=== PATIENT | female | born 1960 | race Caucasian/White ===

== ENCOUNTER → 2017-11-27 14:47 | Outpatient (CLI) | payer MEDICARE, MEDICAID, SELFPAY ==
--- NOTE | 2017-11-27 14:56 | XR_ITS ---
XR chest 2V Ordering Physician: Parish Burks MD Patient Age: 57 years: Female HISTORY: ITS.REASON: LT PLEURITIC PAIN TECHNIQUE: PA and lateral chest COMPARISON :Previous chest film from 2009 FINDINGS Lungs well expanded and clear with nothing definitely acute Heart is normal in size aorta is tortuous. Rosanne and mediastinal structures satisfactory. Severe scoliosis is seen at the upper lumbar spine and thoracolumbar region . Regarding pleuritic pain no pneumothorax. No pleural effusion. No chest wall lesion or rib lesion evident. The T-spine features appear similar to 2009 CXR. With only slight additional kyphosis at severe rotoscoliosis of lower T-spine IMPRESSION: ] Stable chest nothing definitely acute Lungs clear . Pronounced rotoscoliosis at the thoracolumbar spine with slight additional kyphosis here since 2009
== END ==
PROVIDERS: PCP Family Medicine; Visit Provider Family Medicine
DX: R07.89 Other chest pain (principal)
CPT/HCPCS: 71046

== ENCOUNTER → 2018-07-02 10:10 | Outpatient (POV) | payer MEDICARE, MEDICAID, SELFPAY | PROVIDERS: Visit Provider Physician Assistant | DX: Z00.00 Encounter for general adult medical examination without abnormal findings (principal) ==

== ENCOUNTER → 2018-07-09 10:08 | Outpatient (POV) | payer MEDICARE, MEDICAID, SELFPAY | PROVIDERS: Visit Provider Nurse Practitioner Acute Care | DX: Z00.00 Encounter for general adult medical examination without abnormal findings (principal) ==

== ENCOUNTER → 2018-10-02 11:04 | Outpatient (POV) | payer MEDICARE, MEDICAID, SELFPAY | PROVIDERS: Visit Provider Dermatology | DX: Z00.00 Encounter for general adult medical examination without abnormal findings (principal) ==

== ENCOUNTER → 2019-04-02 10:06 | Outpatient (POV) | payer MEDICARE, MEDICAID, SELFPAY | PROVIDERS: Visit Provider Dermatology | DX: Z00.00 Encounter for general adult medical examination without abnormal findings (principal) ==

== ENCOUNTER → 2019-08-22 13:31 | Outpatient (CLI) | payer MEDICARE, MEDICAID, SELFPAY ==
--- NOTE | 2019-08-22 13:40 | XR_ITS ---
PROCEDURE: XR FOOT WT BEARING RT 3V CLINICAL INDICATION: foot pain COMPARISON: FTL3 FOOT-LT-3 VIEWS from 01/31/2014 FINDINGS: No fracture or dislocation. No lytic or blastic change. There is normal mineralization. There are mild osteoarthritic changes at the navicular cuneiform joint with borderline pes planus Other findings:None. IMPRESSION: Minimal osteoarthritic change with borderline pes planus Dictated by: Owen Jha MD 08/22/2019 16:38 Electronically signed by Owen Jha MD in [place] 08/22/2019 16:38
--- NOTE | 2019-08-22 13:40 | XR_ITS ---
PROCEDURE: XR FOOT WT BEARING LT 3V CLINICAL INDICATION: foot pain COMPARISON: FTL3 FOOT-LT-3 VIEWS from 01/31/2014 FINDINGS: No fracture or dislocation. No lytic or blastic change. There is normal mineralization. The joint spaces are well-preserved. No significant degenerative/arthritic changes. No erosive changes evident. Other findings:There is deformity of the proximal phalanx of the 2nd toe with some foreshortening of the proximal phalanx. Has the patient had prior surgery?. There is borderline pes planus. No acute findings are evident. IMPRESSION: Borderline pes planus with foreshortening of the proximal phalanx of the 2nd toe Dictated by: Owen Jha MD 08/22/2019 16:41 Electronically signed by Owen Jha MD in [place] 08/22/2019 16:41
== END ==
PROVIDERS: PCP Family Medicine; Visit Provider Podiatrist
DX: M79.672 Pain in left foot (principal); M79.671 Pain in right foot
CPT/HCPCS: 73630

== ENCOUNTER → 2020-04-28 08:59 | Outpatient (POV) | payer MEDICARE, MEDICAID, SELFPAY | PROVIDERS: PCP Family Medicine; Visit Provider Physician Assistant | DX: Z00.00 Encounter for general adult medical examination without abnormal findings (principal) ==

== ENCOUNTER → 2021-05-17 15:08 | Outpatient (CLI) | payer MEDICARE, MEDICAID, SELFPAY ==
--- NOTE | 2021-05-17 15:16 | XR_ITS ---
PROCEDURE: XR CHEST 2V CLINICAL HISTORY: COUGH COMPARISON: CR CXR CHEST(2 VIEWS-NOT PORTABLE) from 12/13/2013 CR CXR CHEST(2 VIEWS-NOT PORTABLE) from 08/23/2015 CR CXR2V XR chest 2V from 11/27/2017 FINDINGS: The cardiomediastinal silhouette and pulmonary vascularity are within normal limits. The lungs are clear without infiltrates, suspicious nodules, or pleural effusions. There is thoracic scoliosis convex left and lumbar scoliosis convex right. There is kyphosis of the thoracolumbar spine IMPRESSION: No change with no acute finding. Dictated by: Owen Jha MD 05/17/2021 15:36 Owen Jha MD in [place] 05/17/2021 15:36
== END ==
PROVIDERS: PCP Family Medicine; Visit Provider Family Medicine
DX: R05 Cough (principal)
CPT/HCPCS: 71046

== ENCOUNTER → 2021-05-25 10:33 | Outpatient (POV) | payer MEDICARE, MEDICAID, SELFPAY | PROVIDERS: Visit Provider Dermatology | DX: Z00.00 Encounter for general adult medical examination without abnormal findings (principal) ==

== ENCOUNTER → 2021-09-08 11:17 | Outpatient (CLI) | payer MEDICARE, MEDICAID, SELFPAY ==
--- NOTE | 2021-09-08 11:28 | XR_ITS ---
PROCEDURE: XR CHEST PORTABLE CLINICAL HISTORY: COVID TESTING COMPARISON: CR CXR CHEST(2 VIEWS-NOT PORTABLE) from 08/23/2015 CR CXR2V XR chest 2V from 11/27/2017 CR XR CHEST 2V from 05/17/2021 FINDINGS: The cardiomediastinal silhouette and pulmonary vascularity are within normal limits considering a somewhat poor inspiration. The lungs are clear without infiltrates, suspicious nodules, or pleural effusions. No acute bony abnormalities. Dextroscoliotic curvature of the thoracolumbar junction. IMPRESSION: No acute findings. Dictated by: Dr. Phillip Del Cid MD 09/08/2021 12:17 Dr. Phillip Del Cid MD in [place] 09/08/2021 12:17
[2021-09-08 11:47] LABS: Adenovirus,PCR Not Detected (NotDetected); Bordetella Pertussis Not Detected (NotDetected); Chlamydophila Pneumoniae, PCR Not Detected (NotDetected); Coronavirus 19, PCR Not Detected (NotDetected); Coronavirus 229E Not Detected (NotDetected); Coronavirus NL63 Not Detected (NotDetected); Coronavirus OC43 Not Detected (NotDetected); Coronovirus HKU1,PCR Not Detected (NotDetected); Human Metapneumovirus Not Detected (NotDetected); Influenza A, PCR Not Detected (NotDetected); Influenza AH1, 2009 Not Detected (NotDetected); Influenza AH1, PCR Not Detected (NotDetected); Influenza AH3,PCR Not Detected (NotDetected); Influenza B, PCR Not Detected (NotDetected); Mycoplasma Pneumoniae, PCR Not Detected (NotDetected); Parainfluenza 1, PCR Not Detected (NotDetected); Parainfluenza 2, PCR Not Detected (NotDetected); Parainfluenza 3, PCR Not Detected (NotDetected); Parainfluenza 4, PCR Not Detected (NotDetected); Respiratory Syncytial Virus Not Detected (NotDetected)
[2021-09-08 11:59] LABS: Basophils # 0.1 K/mm3 (0-0.2); Basophils % 1.2 % (0.1-2.0); Eosinophils # 0.2 K/mm3 (0.0-0.4); Eosinophils % 3.6 % (0.1-12.0); Hematocrit 44.2 % (37.0-47.0); Lymphocytes # 1.7 K/mm3 (0.7-4.5); Lymphocytes % 26.3 % (10-50); Mean Corpuscular HGB Conc 31.7 g/dL (31.8-35.4); Mean Corpuscular Hemoglobin 29.1 pg (27.0-31.2); Mean Platelet Volume 7.7 fl (7.4-10.4); Monocytes # 0.6 K/mm3 (0.1-1.0); Neutrophils % 59.9 % (37.0-80.0); Platelet Count 192 K/mm3 (142-424); Red Blood Count 4.81 M/mm3 (4.20-5.40); Red Cell Distribution Width 12.6 % (11.5-17.5); White Blood Count 6.6 K/mm3 (4.8-10.8)
[2021-09-08 15:13] LABS: Rhinovirus/Enterovirus Detected (NotDetected)
== END ==
PROVIDERS: PCP Family Medicine; Visit Provider Nurse Practitioner Family
DX: Z20.822 Contact with and (suspected) exposure to COVID-19 (principal); B34.1 Enterovirus infection, unspecified
CPT/HCPCS: 36415; 71045; 85025; 87581; 87632; 87798; C9803; U0003; U0005

== ENCOUNTER → 2022-06-21 11:52 | Outpatient (CLI) | payer MEDICARE, MEDICAID, SELFPAY ==
--- NOTE | 2022-06-21 11:57 | XR_ITS ---
FINAL REPORT CLINICAL HISTORY: Pain in left shoulder FINDINGS: LEFT SHOULDER Three views demonstrate no acute fracture or dislocation. There are mild degenerative changes of the acromioclavicular and glenohumeral joints. The visualized bony structures are well aligned. No soft tissue abnormality is seen. IMPRESSION: Mild degenerative change as described. Reviewed, Interpreted and Dictated by Ronak Osman III, MD Transcribed by Penelope Mcdonald Authenticated and [facility]
== END ==
PROVIDERS: PCP Family Medicine; Visit Provider Family Medicine
DX: M25.512 Pain in left shoulder (principal)
CPT/HCPCS: 73030

== ENCOUNTER → 2022-06-21 15:07 | Outpatient (POV) | payer MEDICARE, MEDICAID, SELFPAY | PROVIDERS: Visit Provider Dermatology | DX: Z00.00 Encounter for general adult medical examination without abnormal findings (principal) ==

== ENCOUNTER → 2022-09-16 09:37 | Outpatient (CLI) | payer MEDICARE, MEDICAID, SELFPAY ==
[2022-09-16 10:27] LABS: Basophils # 0.1 K/mm3 (0-0.2); Basophils % 1.6 % (0.1-2.0); Eosinophils # 0.1 K/mm3 (0.0-0.4); Eosinophils % 1.9 % (0.1-12.0); Hematocrit 42.8 % (37.0-47.0); Hemoglobin 13.7 g/dL (12.2-16.2); Lymphocytes # 2.5 K/mm3 (0.7-4.5); Mean Corpuscular HGB Conc 32.1 g/dL (31.8-35.4); Mean Corpuscular Hemoglobin 29.8 pg (27.0-31.2); Mean Corpuscular Volume 92.8 fl (81-99); Mean Platelet Volume 8.8 fl (7.4-10.4); Monocytes # 0.5 K/mm3 (0.1-1.0); Monocytes % 7.4 % (1.7-9.3); Neutrophils % 55.1 % (37.0-80.0); Platelet Count 218 K/mm3 (142-424); Red Blood Count 4.61 M/mm3 (4.20-5.40); Red Cell Distribution Width 13.3 % (11.5-17.5); White Blood Count 7.2 K/mm3 (4.8-10.8)
[2022-09-16 10:47] LABS: Alanine Aminotransferase 24 U/L (12-78); Albumin Level 4.2 g/dl (3.5-5.0); Albumin/Globulin Ratio 1.8 (1.1-1.8); Alkaline Phosphatase 110 U/L (38-126); Anion Gap 11.6 mEq/L (5-15); Aspartate Amino Transferase 32 U/L (14-36); Bilirubin,Total 0.5 mg/dl (0.2-1.3); Blood Urea Nitrogen 13 mg/dl (7-17); Calcium 9.5 mg/dl (8.4-10.2); Carbon Dioxide 33 mmol/L (22.0-30.0); Chloride 99 mmol/L (98-107); Estimated Glomerular Filt Rate 72 ml/min (>60); GFR (African American) 88 ML/MIN (>60); Globulin 2.4 g/dL (1.3-3.2); Glucose 93 mg/dl (74-100); Potassium 3.6 mmoL/L (3.5-5.1); Sodium 140 mmol/L (136-145); Total Protein,Serum 6.6 g/dl (6.3-8.2)
[2022-09-16 11:52] LABS: Vitamin B12 934 pg/mL (239-931)
[2022-09-16 12:02] LABS: Folate > 20.00 ng/mL; Iron 74 ug/dL (37-170)
[2022-09-16 12:39] LABS: Ferritin 19.5 ng/ml (11.1-264)
== END ==
PROVIDERS: Family Medicine; PCP Family Medicine
DX: G25.81 Restless legs syndrome (principal); D50.8 Other iron deficiency anemias
CPT/HCPCS: 36415; 80053; 82607; 82728; 82746; 83540; 85025

== ENCOUNTER → 2022-10-28 09:29 | Outpatient (CLI) | payer MEDICARE, MEDICAID, SELFPAY ==
--- NOTE | 2022-10-28 09:34 | XR_ITS ---
FINAL REPORT TECHNIQUE: Bone densitometry calculations of the lumbar spine and right hip were obtained. CLINICAL HISTORY: . post menopausal FINDINGS: DEXA BONE DENSITY AXIAL SKELETON Using L1-4, the bone mineral density of the spine is 0.773 g/cm2, corresponding to T-score of -2.5. Using the right hip, the bone mineral density of the femoral neck is 0.566 g/cm2, corresponding to a T-score of -3.1. NOTE: T-score: Standard deviation compared with peak bone mass of young adult mean. *Following the recommendations of the International Society of Bone Densitometry, classification of hip BMD is based on the lower of two T-scores; total hip or femoral neck. IMPRESSION: Osteoporosis: Lowest T-score is at or below -2.5. This patient's T-score meets the World Health Organization criteria for osteoporosis. FRAX not reported because: some T-score for spine total or hip total or femoral neck at or below-2.5. Reviewed, Interpreted and Dictated by Ronak Osman III, MD Transcribed by Penelope Mcdonald Authenticated and [facility]
== END ==
PROVIDERS: PCP Family Medicine; Visit Provider Family Medicine
DX: Z78.0 Asymptomatic menopausal state (principal); M81.0 Age-related osteoporosis without current pathological fracture
CPT/HCPCS: 77080

== ENCOUNTER 2022-11-29 11:07 | Outpatient (CLI) | payer MEDICARE, MEDICAID, SELFPAY ==
[2022-11-29 11:30] VITALS: BP 137/54; PULSE 78; RESP 20; TEMP 36.3; O2SAT 100
== END 2022-11-29 11:50 | disposition home or self-care (01) ==
LOC: INF 11:08
PROVIDERS: PCP Family Medicine; Visit Provider Family Medicine
DX: M81.0 Age-related osteoporosis without current pathological fracture (principal)
CPT/HCPCS: 96372; J0897

== ENCOUNTER 2023-05-30 11:11 | Outpatient (CLI) | payer MEDICARE, MEDICAID, SELFPAY ==
[2023-05-30 11:26] VITALS: BP 117/64; PULSE 71; RESP 18; O2SAT 99
== END 2023-05-30 11:35 | disposition home or self-care (01) ==
LOC: INF 11:13
PROVIDERS: PCP Family Medicine; Visit Provider Family Medicine
DX: M81.0 Age-related osteoporosis without current pathological fracture (principal)
CPT/HCPCS: 96372; J0897

== ENCOUNTER → 2023-08-01 12:58 | Outpatient (POV) | payer MEDICARE, MEDICAID, SELFPAY | PROVIDERS: Visit Provider Dermatology | DX: Z00.00 Encounter for general adult medical examination without abnormal findings (principal) ==

== ENCOUNTER 2024-05-30 09:27 | Outpatient (CLI) | payer MEDICARE, MEDICAID, SELFPAY ==
--- NOTE | 2024-05-30 09:32 | XR_ITS ---
FINAL REPORT CLINICAL HISTORY: SCREENING, scoliosis FINDINGS: BONE MINERAL DENSITOMETRY, DEXA SCAN CLINICAL HISTORY: Osteoporosis screening. Comparison: None FINDINGS: Bone densitometry calculations of the lumbar spine and left femoral neck were obtained. Average BMD for the lumbar spine from L1-L4 is 0.763 g/sq cm. T-score is -2.6 Z-score is -0.8 Left femoral neck BMD is 0.515 g/sq cm. T-score is -3.0. Z score is -1.5 IMPRESSION: 1. Osteoporosis BMD of the lumbar spine.. Elevated risk for fracture. 2. Osteoporosis BMD of the left femoral neck. Elevated risk for fracture. Films reviewed , interpreted and dictated by Dr. Daija Heredia. Transcribed by Duglas Angeles PA-C. Reviewed, Interpreted and Dictated by Daija Heredia MD Transcribed by NEIL Brandt Authenticated and [facility]
== END 2024-05-30 23:59 | disposition home or self-care (01) ==
LOC: RAD 09:28
PROVIDERS: PCP Family Medicine; Visit Provider Family Medicine
DX: M81.0 Age-related osteoporosis without current pathological fracture (principal)
CPT/HCPCS: 77080

== ENCOUNTER 2024-11-21 10:00 | Day surgery (SDC) | payer MEDICARE, MEDICAID, SELFPAY ==
[2024-11-21 10:21] VITALS: BP 130/80; PULSE 84; RESP 18; TEMP 36.6; O2SAT 96
[2024-11-21] MEDS: LACTATED RINGERS 1000ML 1,000 ML 25 ML IV (10:33)
--- NOTE | 2024-11-21 10:37 | P.PNANES_ITS ---
[facility] Disclaimer: The information contained in this section may have been updated after the patient was seen, as this information can be updated by other users. Medical History History of skin cancer Arthritis Migraines GERD (gastroesophageal reflux disease) Restless leg syndrome Osteoporosis Asthma Vaginal atrophy Surgical History History of cancer surgery H/O arthroscopy of right knee History of carpal tunnel release History of colonoscopy History of esophagogastroduodenoscopy (EGD) History of hammertoe correction History of phacoemulsification of cataract of both eyes with intraocular lens implantation History of cholecystectomy Family History Mother Cancer ovarian Other Asthma Hyperlipidemia Hypertension Social History (Updated 11/21/24 @ 10:23 by Davida Baeza RN) Smoking Status: Never smoker alcohol intake: never substance use type: denies use current occupational status: disabled Travel in the last 8 weeks: None caffeine: Yes [facility] Anesthesia Checklist Patient Identification Patient Identification: Arm Band and Verbal (Name & ) Structural Data Admitted From: Home Planned Operative Procedure/s: EGD/Colonoscopy Consent for Planned Operative Procedure(s) Verified: Yes Verified Documents: Surgical Consent and History and Physical NPO Status Verified Time NPO: 07:00 Additional verifications Patient : No Anesthesia Reactions: Yes (PONV w/GA) Cardiovascular Assessment Heart Sounds: S1 & S2 Pulse Rhythm: Irregular Peripheral Edema: No Airway Assessment Mallampati Score:: Class II C-Spine Mobility Assessed: Yes (FROM) TMJ Mobility Assessed: Yes Dentition: Good Dentition (Nothing loose per pt.) Neurological Assessment Level of Consciousness: Awake, Alert, Appropriate and Follows Commands Hx Seizures: No Numbness or tingling in extremities: No Anesthesia Plan Anesthesia Plan: Verified ASA Class: III Anesthesia Type: MAC
[2024-11-21 10:44] VITALS: O2SAT 100
--- NOTE | 2024-11-21 10:47 | EXP.HP ---
History of Present Illness *Admission Date: 11/21/24 *Reason for visit:: Intractable heartburn/reflux with some dysphagia and surveillance colonosco *History of present illness: Mrs. James is a 63-year-old female who is here for diagnostic upper endoscopy secondary to intractable heartburn/GERD and screening/surveillance colonoscopy (10 years since last). The examination is deemed medically necessary for diagnostic upper endoscopy and surveillance colonoscopy. The patient has been seen, interviewed and examined prior to the procedure by both myself and the anesthesia provider. [facility] Disclaimer: The information contained in this section may have been updated after the patient was seen, as this information can be updated by other users. Medical History (Updated 11/21/24 @ 10:49 by Chas Beard II, MD) History of skin cancer Arthritis Migraines GERD (gastroesophageal reflux disease) Restless leg syndrome Osteoporosis Asthma Vaginal atrophy Surgical History History of cancer surgery H/O arthroscopy of right knee History of carpal tunnel release History of colonoscopy History of esophagogastroduodenoscopy (EGD) History of hammertoe correction History of phacoemulsification of cataract of both eyes with intraocular lens implantation History of cholecystectomy Family History Mother Cancer ovarian Other Asthma Hyperlipidemia Hypertension Social History (Updated 11/21/24 @ 10:38 by Carey Ahuja CRNA) Smoking Status: Never smoker alcohol intake: never substance use type: denies use current occupational status: disabled Travel in the last 8 weeks: None caffeine: Yes Have you lived/traveled outside [place] in past 30 days?: No Contact w/someone who lives/traveled outside US past 30 days?: No Exposure to someone with infectious disease in past 14 days?: No Do you have a fever (greater than 100.4 F or 38 C)?: No Have you tested positive for COVID-19: No Exposed to someone with COVID-19 in past 14 days?: No Do you have a sore throat?: No Do you have a cough?: No Do you have any weakness?: No Are you experiencing any nausea/vomitting?: No Do you have any diarrhea?: No Are you experiencing any unusual bleeding?: No Do you have any muscle aches/pain?: No Do you have any abdominal pain?: No Are you experiencing loss of taste or smell?: No Other Medical History Have you received the Pneumonia Vaccine: No Review of Systems Review of Systems Review of systems (narrative): Negative *Cardiovascular Comments: Negative *Gastrointestinal Comments: Negative *Genitourinary Comments: Negative *Musculoskeletal Comments: Negative *Neurologic Comments: Negative Meds Home Medications and Allergies Home Medications ?Medication ?Instructions ?Recorded ?Confirmed ?Type albuterol sulfate 90 mcg/actuation 1 inh inhalation NEEDED PRN 08/22/19 11/21/24 History aerosol inhaler breathing #18 grams fluticasone propionate 220 1 inh inhalation DAILY allergies 08/22/19 11/21/24 History mcg/actuation HFA aerosol inhaler #12 grams hydroxyzine pamoate 25 mg capsule 25 mg PO NEEDED PRN Anxiety #30 08/22/19 11/21/24 History caps sumatriptan succinate 100 mg tablet 100 mg PO NEEDED PRN migraines 08/22/19 11/21/24 History #9 tabs omeprazole 20 mg capsule,delayed 20 mg PO DAILY GERD 06/27/22 11/21/24 History release ropinirole 0.25 mg tablet 0.25 mg PO HS 12/26/22 11/21/24 History tizanidine 4 mg capsule 4 mg PO BID PRN . 07/11/23 11/21/24 History oxcarbazepine 150 mg tablet 150 mg PO DAILY 09/30/24 11/21/24 History sodium,potassium,mag sulfates 17.5 See Rx Instructions PO .COMPLEX 11/08/24 11/21/24 Rx gram-3.13 gram-1.6 gram oral soln #354 mL (Suprep Bowel Prep Kit) New Prescriptions to Start Prescriptions: Allergies Allergy/AdvReac Type Severity Reaction Status Date / Time clavulanic acid (CLAVULANIC Allergy Mild UNKNOWN Verified 11/21/24 10:26 ACID) erythromycin base Allergy Mild UNKNOWN Verified 11/21/24 10:26 (ERYTHROMYCIN BASE) gabapentin (GABAPENTIN) Allergy Mild UNKNOWN Verified 11/21/24 10:26 guaifenesin (GUAIFENESIN) Allergy Mild BLEEDING Verified 11/21/24 10:26 risedronate sodium (From Allergy Mild UNKNOWN Verified 11/21/24 10:26 ATELVIA) sulindac (SULINDAC) Allergy Mild UNKNOWN Verified 11/21/24 10:26 topiramate (TOPIRAMATE) Allergy Mild UNKNOWN Verified 11/21/24 10:26 alendronate sodium (From Allergy Unknown Other Verified 11/21/24 10:26 FOSAMAX) amoxicillin (AMOXICILLIN) Allergy Unknown Other Verified 11/21/24 10:26 beclomethasone (From Allergy Unknown Other Verified 11/21/24 10:26 BECONASE AQ) cefaclor (CEFACLOR) Allergy Unknown Other Verified 11/21/24 10:26 celecoxib (CELECOXIB) Allergy Unknown Other Verified 11/21/24 10:26 ciprofloxacin (From CIPRO) Allergy Unknown Other Verified 11/21/24 10:26 clarithromycin (From BIAXIN) Allergy Unknown Other Verified 11/21/24 10:26 cyclobenzaprine Allergy Unknown Other Verified 11/21/24 10:26 (CYCLOBENZAPRINE) estradiol (From ESTRACE) Allergy Unknown Other Verified 11/21/24 10:26 piroxicam (From FELDENE) Allergy Unknown Other Verified 11/21/24 10:26 pregabalin (From LYRICA) Allergy Unknown CONFUSION Verified 11/21/24 10:26 diphenoxylate (From Lomotil) AdvReac Mild headache Verified 11/21/24 10:26 acetaminophen (From Endocet) AdvReac Other Verified 11/21/24 10:26 azithromycin AdvReac Other Verified 11/21/24 10:26 carbamazepine AdvReac Other Verified 11/21/24 10:26 doxycycline AdvReac Other Verified 11/21/24 10:26 fluticasone (From Advair AdvReac Other Verified 11/21/24 10:26 Diskus) indomethacin AdvReac Other Verified 11/21/24 10:26 methylprednisolone AdvReac Other Verified 11/21/24 10:26 montelukast AdvReac Other Verified 11/21/24 10:26 oxaprozin (From Daypro) AdvReac UPSET Verified 11/21/24 10:26 STOMACH oxycodone (From Endocet) AdvReac Other Verified 11/21/24 10:26 phenylephrine (From Entex [place]) AdvReac BLEEDING Verified 11/21/24 10:26 phenylpropanolamine (From AdvReac BLEEDING Verified 11/21/24 10:26 Entex [place]) ropinirole (From Requip) AdvReac Other Verified 11/21/24 10:26 salsalate AdvReac Other Verified 11/21/24 10:26 tiotropium (From Spiriva AdvReac Other Verified 11/21/24 10:26 with HandiHaler) Exam Data for Last 24 hours Vital signs and Labs for Last 24 Hours: Temp Pulse Resp BP Pulse Ox O2 Del Method O2 Flow Rate 97.9 F 84 18 130/80 96 Nasal Cannula 5 11/21/24 10:21 11/21/24 10:21 11/21/24 10:21 11/21/24 10:21 11/21/24 10:21 11/21/24 10:44 11/21/24 10:44 I & O for Last 24 hours: Intake & Output 11/18/24 11/19/24 11/20/24 11/21/24 23:59 23:59 23:59 23:59 Weight 134 lb *Routine HEENT Exam Head: Present normocephalic Eye: Present EOMI and PERRL ENT: Present mucous membranes moist *Routine Neck Exam Neck: Present supple *Routine Respiratory Exam Respiratory: Present CTA bilaterally *Routine Cardiovascular Exam Cardiovascular: Present RRR *Routine Abdominal Exam Abdominal: Present soft and normoactive bowel sounds; Absent tenderness *Routine Rectal Exam Rectal:: deferred *Routine Genitalia Exam Genitalia:: deferred *Routine Extremities Exam Extremities: Absent cyanosis, clubbing or edema *Routine Skin Exam Skin: Present warm; Absent rash *Routine Neurological Exam Neurological: Present alert and oriented X3 Assessment and Plan *Assessment and plan (1) Functional dyspepsia: Status: Acute Category: Medical Code(s): K30 - Functional dyspepsia (2) Chronic throat clearing: Status: Acute Category: Medical Code(s): R09.89 - Other specified symptoms and signs involving the circulatory and respiratory systems (3) Coughing: Status: Acute Category: Medical Code(s): R05.9 - Cough, unspecified (4) Bloating: Status: Acute Category: Medical Code(s): R14.0 - Abdominal distension (gaseous) (5) GERD (gastroesophageal reflux disease): Status: Acute Category: Medical Code(s): K21.9 - Gastro-esophageal reflux disease without esophagitis (6) Screening for colon cancer: Status: Acute Category: Medical Code(s): Z12.11 - Encounter for screening for malignant neoplasm of colon Plan A/P: 1. Intractable GERD/reflux and dyspepsia for upper endoscopy and screening/surveillance colonoscopy is the preprocedural diagnosis. The patient will be anesthetized/sedated using MAC sedation. The patient has been seen and examined. Cardiac and lung assessment prior to the examination is stable. Proceed with planned EGD and colonoscopy
--- NOTE | 2024-11-21 10:49 | P.PCN_ITS ---
[facility] Procedure Note Date: 11/21/24 Time: 11:07 Procedure Note:: Upper Endoscopy Procedure Report: Esophagogastroduodenoscopy with cold biopsies and TTS balloon dilation Endoscopost: Chas Beard II, MD Referring Physician: Rivas Burks MD Date of Procedure: November 21, 2024 Equipment: Olympus GIF 190 standard upper endoscope Sedation: MAC sedation Indications: Mrs. James is a 63-year-old female with longstanding reflux and functional dyspepsia. She also has IBS. The patient does have numerous drug intolerances and allergies. She did have an intolerance to metoclopramide. She has had recurrent coughing, frequent clearance of the throat and worsening reflux that will awaken her from sleep. She does take omeprazole 20 mg daily and occasionally twice daily. She is on the fiber bowel regimen (combined MiraLAX plus Metamucil) daily and reports regular bowel function. She has moderate bloating, early satiety and some nausea. She often feels the need to belch and has to force herself to belch. She has had some globus and intermittent swallowing difficulty. Her last EGD was in January 2015 showing a medium sized hiatal hernia. Procedure: Prior to the procedure, a history and physical exam was performed, and patient's medications and allergies were reviewed. The risks, benefits and alternatives of the sedation and procedure were discussed with the patient. All questions were answered and informed consent was obtained. The patient was brought to the procedure room. Patient identification and proposed procedure were verified by the physician and the nurse. The patient was placed in a left lateral decubitus position and the scope was passed under direct vision. Throughout the procedure, the patient's blood pressure, pulse, and oxygen saturations were monitored continuously. The upper GI endoscopy was accomplished without difficulty. The patient tolerated the procedure well. Findings: The scope was passed directly into the upper esophagus and advanced to the third portion of the duodenum. The post bulbar duodenum and duodenal bulb were normal with normal mucosa and conniventes. The scope was withdrawn through a normal duodenal bulb and pylorus into the stomach. There was moderate bile reflux with moderate linear reactive gastropathy of the antrum and body. Upon retroflexion there was a large 8 to 9 cm hiatal hernia with paraesophageal component. The diaphragmatic hiatus was at 40 cm from the incisors. The top of the gastric folds was at 31 to 32 cm from the incisors leaving the 8 to 9 cm hiatal hernia. There were no Arnaldo's erosions. The scope was then withdrawn into the esophagus. There was grade A?B reflux esophagitis and biopsies were taken at the squamocolumnar junction. There were tertiary contractions and evidence of presbyesophagus and moderate esophageal dysmotility. The entire esophagus was dilated to 60 Sinhala/20 mm with a TTS hydrostatic balloon with some thickening and mild resistance at the cricopharyngeus. The remainder of the esophageal mucosa was normal. Impression: 1. Cricopharyngeal spasm status post dilation to 20 mm 2. Large paraesophageal type hiatal hernia (8 to 9 cm) 3. Grade A?B (LA classification) reflux esophagitis 4. Bile reflux with linear reactive gastropathy Plan: Based upon the size and nature of the paraesophageal hernia and her ongoing symptoms, we must consider hiatal hernia repair. A paraesophageal hernia refers to larger portions of the stomach that are pushed up into the chest. Surgical management is more important with this type of hiatal hernia. Sometimes, there is torsion of the stomach (i.e. gastric volvulus) with resulting stomach obstruction which can lead to a medical emergency. Occasionally, this volvulus can cause strangulation of the vessels. The patient has never clearly had a gastric volvulus and not all paraesophageal hernias need to be repaired but we recommend surgical repair when persons have ongoing dyspeptic symptoms because of the potential for increased risk. I am going to discuss this with the patient and family. I will follow-up biopsies and continue acid suppressive therapy. I would consider
--- NOTE | 2024-11-21 11:21 | HMH.PROCNOTE ---
[facility] Procedure Note Date: 11/21/24 Time: 11:22 Procedure Note:: Colonoscopy Procedure Report: Colonoscopy with cold snare polypectomy Endoscopist: Chas Beard II, MD Referring physician: Rivas Burks MD Date of Procedure: November 21, 2024 Equipment: Olympus 190 variable stiffness pediatric colonoscope Sedation: MAC sedation Indication: Mrs. James is a 63-year-old female who is here for surveillance colonoscopy. Her last colonoscopy in January 2015 was normal except for a benign small rectosigmoid hyperplastic polyp and she was given 10-year surveillance. She does have a long history of IBS. She reports no rectal bleeding, weight loss, change in her bowel habits or family history of colon cancer. Procedure: Prior to the procedure, a history and physical exam was performed, and patient's medications and allergies were reviewed. The risks, benefits and alternatives of the sedation and procedure were discussed with the patient. All questions were answered and informed consent was obtained. The patient was brought to the procedure room. Patient identification and proposed procedure were verified by the physician and the nurse. The patient was placed in a left lateral decubitus position and the scope was passed under direct vision. Throughout the procedure, the patient's blood pressure, pulse, and oxygen saturations were monitored continuously. The colonoscopy was accomplished without difficulty. The patient tolerated the procedure well. Findings: On digital rectal examination there was normal rectal tone. There were no external hemorrhoids. The colonoscope was introduced through the anal canal to the rectum and advanced to the cecum. The ileocecal valve and appendiceal orifice were identified. The scope was advanced a short distance into the ileum which appeared grossly normal. The scope was then withdrawn into the colon. The cecum, ascending, transverse and descending colon were grossly normal. There was a single 6 mm polyp in the sigmoid colon removed via cold snare polypectomy. The rectum itself was normal. There were no other mucosal abnormalities identified. Upon retroflexion within the rectum there were grade 1-2 internal hemorrhoids.The preparation was excellent throughout with Tullos Preparation Score of 9. The cecal time was 10 minutes. Impression: 1. Sigmoid polyp (6 mm) 2. Grade 1-2 internal hemorrhoids Plan: I will follow-up the polyp histology and recommend repeat surveillance colonoscopy again in 7 years if the polyp is adenomatous. I would continue the fiber bowel regimen (combined MiraLAX plus Metamucil) on a long-term daily maintenance basis.
[2024-11-21 11:25] VITALS: BP 101/53; PULSE 76; RESP 16; TEMP 36.3; O2SAT 97
[2024-11-21 11:35] VITALS: BP 135/83; PULSE 75; RESP 16; O2SAT 98
[2024-11-21 11:45] VITALS: BP 120/89; PULSE 67; RESP 17; O2SAT 95
[2024-11-21 11:55] VITALS: BP 108/68; PULSE 72; RESP 17; O2SAT 98
== END 2024-11-21 12:29 | disposition home or self-care (01) ==
PROVIDERS: PCP Family Medicine; Visit Provider Internal Medicine Gastroenterology
PROC: 0DJ08ZZ Inspection of Upper Intestinal Tract, Via Natural or Artificial Opening Endoscopic (ICD-10-PCS; CPT 45378; principal; 2024-11-21 11:30)
DX: K30 Functional dyspepsia (principal); R09.89 Other specified symptoms and signs involving the circulatory and respiratory systems; R05.9 Cough, unspecified; R14.0 Abdominal distension (gaseous); K21.9 Gastro-esophageal reflux disease without esophagitis; Z12.11 Encounter for screening for malignant neoplasm of colon; J39.2 Other diseases of pharynx; K44.9 Diaphragmatic hernia without obstruction or gangrene; K21.00 Gastro-esophageal reflux disease with esophagitis, without bleeding; K31.9 Disease of stomach and duodenum, unspecified; K63.5 Polyp of colon; K64.8 Other hemorrhoids
CPT/HCPCS: 43239; 43249; 45385; C1726; J7120

== ENCOUNTER 2024-11-28 11:58 | Outpatient (CLI) | payer MEDICARE, MEDICAID, SELFPAY ==
[2024-11-28 13:34] VITALS: BMI 31.7
== END 2024-11-28 23:59 | disposition home or self-care (01) ==
LOC: DIETICIAN 12:00
PROVIDERS: PCP Family Medicine; Visit Provider Internal Medicine Gastroenterology
DX: K30 Functional dyspepsia (principal); K21.9 Gastro-esophageal reflux disease without esophagitis
CPT/HCPCS: 97802

== ENCOUNTER 2024-12-30 08:42 | Outpatient (CLI) | payer MEDICARE, MEDICAID, SELFPAY ==
[2024-12-30 09:01] LABS: Basophils # 0.1 K/mm3 (0-0.2); Basophils % 1.2 % (0.1-2.0); Eosinophils # 0.2 K/mm3 (0.0-0.4); Eosinophils % 2.7 % (0.1-12.0); Hematocrit 39.6 % (37.0-47.0); Hemoglobin 13.3 g/dL (12.2-16.2); Lymphocytes # 2.2 K/mm3 (0.7-4.5); Lymphocytes % 32.3 % (10-50); Mean Corpuscular HGB Conc 33.6 g/dL (31.8-35.4); Mean Corpuscular Volume 86.3 fl (81-99); Mean Platelet Volume 9.6 fl (7.4-10.4); Monocytes # 0.7 K/mm3 (0.1-1.0); Monocytes % 9.7 % (1.7-9.3); Neutrophils # 3.6 K/mm3 (1.8-7.8); Platelet Count 242 K/mm3 (142-424); Red Blood Count 4.59 M/mm3 (4.20-5.40); Red Cell Distribution Width 12.9 % (11.5-17.5); White Blood Count 6.7 K/mm3 (4.8-10.8)
--- NOTE | 2024-12-30 09:11 | ECG_ITS ---
APPROVED REPORT Exam: Resting ECG HR:68 bpm ECG Measurements Heart Rate 68 AXES WV 164 P 26 QRSd 89 QRS -4 QT 401 T 3 QTc 419 Conclusion SINUS RHYTHM POSSIBLE LEFT ATRIAL ENLARGEMENT [-0.1mV P-WAVE IN V1/V2] BORDERLINE ECG UNCONFIRMED REPORT Electronically signed by : Farhad Carrington MD 12/31/2024 16:23:56
[2024-12-30 09:27] LABS: Albumin Level 4.1 g/dl (3.5-5.0); Chloride 96 mmol/L (98-107); Potassium 4.1 mmoL/L (3.5-5.1); Sodium 132 mmol/L (136-145)
[2024-12-30 09:30] LABS: Alanine Aminotransferase 34 U/L (12-78); Albumin/Globulin Ratio 1.6 (1.1-1.8); Alkaline Phosphatase 113 U/L (38-126); Anion Gap 9.1 mEq/L (5-15); Aspartate Amino Transferase 35 U/L (14-36); Bilirubin,Total 0.4 mg/dl (0.2-1.3); Blood Urea Nitrogen 15 mg/dl (7-17); Carbon Dioxide 31 mmol/L (22.0-30.0); Estimated Glomerular Filt Rate 84 ml/min (>60); GFR (African American) 101 ML/MIN (>60); Globulin 2.6 g/dL (1.3-3.2); Total Protein,Serum 6.7 g/dl (6.3-8.2)
[2024-12-30 09:31] LABS: Calcium 8.9 mg/dl (8.4-10.2); Glucose 90 mg/dl (74-100)
== END 2024-12-30 23:59 | disposition home or self-care (01) ==
LOC: RT 08:45
PROVIDERS: PCP Family Medicine; Visit Provider Family Medicine
DX: Z01.818 Encounter for other preprocedural examination (principal)
CPT/HCPCS: 36415; 80053; 85025; 93005

== ENCOUNTER 2025-06-06 09:00 | Outpatient (RCR) | payer MEDICARE, MEDICAID, SELFPAY ==
--- NOTE | 2025-05-14 11:59 | HMH.PTOPEV ---
PT Outpatient Evaluation Rehab PT Outpatient Evaluation Start: 05/14/25 11:07 Freq: Status: Active Protocol: Document 05/14/25 11:07 KEELEY (Rec: 05/14/25 11:59 ENRRIQUEMCKINLEYCARIDAD [id number]) E-signed By Baljit Saunders, PT Outpatient Therapy Subjective History Subjective History The pt is a 64 yof who is referred to [facility] outpatient PT for cervical neck pain and R knee pain. The pt reports that she has dealt with her knee pain for several years, but she reports that it has progressively worsened. Pt reports that her knee will often feel like it is going to give out. Pt denies any falls but reports that she feels like she has been close on several occasions. Pt reports that her knee also feels stiff in the mornings. She reports that she uses a cane whenever she is outside the home and will sometimes use it when she is in the home if she is in a lot of pain. Pt reports that her neck pain seemed to worsen this winter. Pt reports that the pain is on the R side of her neck and will often refer into her shoulder blades. Pt also reports that she will often get headaches from the neck pain. Pt reports that her pain is worsened with cold weather and whenever she has to do any sort of house work with her arms. PMH: History of skin cancer Arthritis Migraines GERD (gastroesophageal reflux disease) Restless leg syndrome Osteoporosis Asthma Vaginal atrophy New diagnosis of No cancer in past 12 months? Chief Complaint Pain,Stiff,Gives out/Unstable Symptom Type Ache,Sharp Symptoms Relieved By Heat Symptoms Aggravated Standing,Twisting,Walking By Prior Functional None Limitations Current Functional Lifting,Housework,Standing,Squatting,Walking,Stairs, Limitations Balance Symptom Description Constant but Variable,Activity Dependent Level of pain today 4 (0-10) Pain scale - at its 2 best (0-10) Pain scale - at its 10 worst (0-10) Cervical Eval Palpation Cervical Muscles R Cervical Paraspinal,R CT Junction,R Upper Trapezius,R Thoracic Paraspinals Cervical/Thoracic Tenderness Palpation Findings Posture Head/C-Spine Posture Flexed Sitting Position Head/C-Spine Posture Flexed Standing Position Flexibility Deficits Upper Trapezius (R) Severe Tightness,(L) Severe Tightness Muscle Length Pectoralis Major (R) Moderate Tightness,(L) Moderate Tightness Muscle Length Pectoralis Minor (R) Moderate Tightness,(L) Moderate Tightness Muscle Length Passive Joint Mobility Cervical PIVM Dec: L C4/5 R C5/6 L C5/6 R C6/7 L C6/7 R C7/T1 L C7/T1 AROM Cervical Spine 50% Extension Active Range of Motion ( degrees) Cervical Spine 75% Flexion Active Range of Motion (degrees) Cervical Spine Right 25% Lateral Flexion Active Range of Motion (degrees) Cervical Spine Left 15% Lateral Flexion Active Range of Motion (degrees) Cervical Spine Right 20% Rotation Active Range of Motion ( degrees) Cervical Spine Left 20% Rotation Active Range of Motion ( degrees) Hip/Knee Eval Gait Observation General Gait Pattern Antalgic Gait,Decrease Weight Bear (R),Decrease Stride Observation Lngth (L) Assistive Device Assistive Devices Straight Cane Palpation Tenderness right Knee Palpation Tenderness Finding Knee Palpation TTP 3/4 to R Knee medial and lateral femoral condyle Overall Comment MMT Hip Flexion Strength 3+ Fair+ Grade Hip Abduction 3 Fair Strength Grade Hip Adduction 3 Fair Strength Grade Hip Extension 3 Fair Strength Grade Knee Extension 3+ Fair+ Strength Grade Knee Flexion 3+ Fair+ Strength Grade ROM Knee ROM Reason Not Within Functional Limits Measured Neck Disability Index Neck Disability Index Section 1: Pain The pain is fairly severe at the moment Intensity Section 2: Personal I can look after myself normally but it causes extra Care (washing, pain dressing, etc.) Section 3: Lifting I can lift heavy weights but it gives extra pain Section 4: Reading I can read as much as I want to with no pain in my neck Section 5: Headaches I have moderate headaches, which come infrequently Section 6: I can concentrate fully when I want to with no Concentration difficulty Section 7: Work I can do as much work as I want to Section 8: Driving I can drive my car as long as I want with slight pain in my neck Section 9: Sleeping My sleep is slightly disturbed (less than 1 hr sleepless) Section 10: I am able to engage in all my recreation activities Recreation with some pain in NDI Score 10 Lower Extremity Functional Index Activities Today, do you or would you have any difficulty at all with: a.Any of your usual A little bit of difficulty work, housework or school activities b. Your usual A little bit of difficulty hobbies, recreational or sporting activities c. Getting into or Moderate difficulty out of the bath d. Walking between Moderate difficulty rooms e. Putting on your Quite a bit of difficulty shoes or socks f. Squatting Quite a bit of difficulty g. Lifting an object No difficulty , like a bag of groceries from the floor h. Performing light Moderate difficulty activities around your home i. Performing heavy A little bit of difficulty activities around your home j. Getting into or Quite a bit of difficulty out of a car k. Walking 2 blocks Extreme difficulty or unable to perform activity l. Walking a mile Quite a bit of difficulty m. Going up or down Moderate difficulty 10 stairs (about 1 flight of stairs) n. Standing for 1 A little bit of difficulty hour o. Sitting for 1 Moderate difficulty hour p. Running on even Quite a bit of difficulty ground q. Running on uneven Quite a bit of difficulty ground r. Making sharp Extreme difficulty or unable to perform activity turns while running fast s. Hopping A little bit of difficulty t. Rolling over in A little bit of difficulty bed LEFI Score Lower Extremity 38 Functional Index Score Miscellaneous Dx PT Eval Objective Objective Tandem Stance: unable to initiate b/l Outpatient Therapy Assessment Impairments Problems/ Palpation Tenderness,Impaired Range of Motion,Impaired Impairmments Strength,Impaired Gait Pattern,Impaired Walking, Impaired Standing,Impaired Household Care,Impaired Stair Climbing,Impaired Squatting,Impaired Balance, Subjective C/O Pain Prognosis Rehab Potential Fair Clinical Impression Consistent with Yes Diagnosis Additional details: Knee OA M17.11 Neck pain with mob. Deficits M54.2 Short Term Goals Number of Weeks 4 Decreased Palpation Yes: 2/4 to TTP assessment above Tenderness Increase Range of Yes: Improve CROM to 40% WNL Motion Increase Strength Yes: R knee/hip to 3+/5 Increase Ability to Yes: 20 minutes without increasing symptoms Stand Improve Balance Yes: TS on even surface without increasing symptoms Improve Neck Yes: <7 Disability Index Score Improve LEFI Score Yes: >48 Decrease Subjective Yes: 5/10 with above assessment C/O Pain Patient to be Ind w/ Yes HEP [facility] Goals Number of Weeks 8 Decreased Palpation Yes: 0-1/4 to TTP assessment above Tenderness Increase Range of Yes: improve CROM to 60% WNL Motion Increase Strength Yes: 4/5 to r hip/knee Improve Gait Pattern Yes: Symmetrical Gait mechanics with AAD. with Assistive Device Increase Ability to Yes: 40 minutes without increasing symptoms Stand Improve Ability For Yes: able to do normal cooking/cleaning without Household Care increasing symptoms Improve Balance Yes: TS on uneven surface for 30s Improve Neck Yes: <4 Disability Index Score Improve LEFI Score Yes: >58 Decrease Subjective Yes: 2-3/10 with above assessment C/O Pain Improve Self Care/ Yes Self Management Patient to be Ind w/ Yes Advanced HEP Outpatient Therapy Plan of Care Treatment Plan May Include Therapeutic Exercise Yes Including Home Exercise Program Manual Therapy Yes Techniques Neuromuscular Re- Yes education Therapeutic Yes Activities to Return to Previous Functional/Work Level Gait Training Yes ADL/Self Care Yes Education Thermal Modalities Yes Electrical Yes Stimulation Ultrasound/ Yes Phonophoresis Iontophoresis Yes Manual Lymphatic Yes Drainage Eval/Re-Eval Yes Frequency Times per week 2 Duration Number of Weeks 8 Addendums This patient is a No candidate for social or vocational rehab ? Patient/Guardian Yes verbally acknowledges understanding of treatment program and consents to further treatment? Patient/Guardian Yes verbally acknowledges understanding of diagnosis, prognosis and goals for treatment? Eval Complexity PT Charges 80349 - High Complexity Shoulder/Elbow Eval Shoulder Objective Measurements Elbow Objective Measurements PHYSICIAN CERTIFICATION: I certify the specified therapy services for Yamilet James are required, authorized, and reviewed every 30 days.
== END 2025-06-06 23:59 | disposition home or self-care (01) ==
LOC: PT 09:00
PROVIDERS: Visit Provider Family Medicine
DX: M54.2 Cervicalgia (principal); M25.561 Pain in right knee
CPT/HCPCS: 97110; 97163; 97530

== ENCOUNTER 2025-07-11 09:00 | Outpatient (RCR) | payer MEDICARE, MEDICAID, SELFPAY ==
--- NOTE | 2025-06-24 09:12 | HMH.RHREAS ---
Rehab Reassessment Rehab OP Re-assessment Start: 06/24/25 08:15 Freq: Status: Active Protocol: Document 06/24/25 08:40 KEELEY (Rec: 06/24/25 09:12 ENRRIQUEMCKINLEYCARIDAD [id number]) E-signed By Baljit Saunders PT Neck Disability Index Neck Disability Index Section 1: Pain The pain is very mild at moment Intensity Section 2: Personal I can look after myself normally without causing extra Care (washing, pain dressing, etc.) Section 3: Lifting I can lift heavy weights but it gives extra pain Section 4: Reading I can read as much as I want to with slight pain in my neck Section 5: Headaches I have moderate headaches, which come infrequently Section 6: I can concentrate fully when I want to with slight Concentration difficulty Section 7: Work I can do as much work as I want to Section 8: Driving I can drive my car as long as I want with slight pain in my neck Section 9: Sleeping My sleep is midly disturbed (1-2 hrs sleepless) Section 10: I am able to engage in all my recreation activities Recreation with some pain in NDI Score 10 Lower Extremity Functional Index Activities Today, do you or would you have any difficulty at all with: a.Any of your usual A little bit of difficulty work, housework or school activities b. Your usual No difficulty hobbies, recreational or sporting activities c. Getting into or No difficulty out of the bath d. Walking between No difficulty rooms e. Putting on your No difficulty shoes or socks f. Squatting Quite a bit of difficulty g. Lifting an object Moderate difficulty , like a bag of groceries from the floor h. Performing light No difficulty activities around your home i. Performing heavy A little bit of difficulty activities around your home j. Getting into or No difficulty out of a car k. Walking 2 blocks A little bit of difficulty l. Walking a mile Moderate difficulty m. Going up or down Moderate difficulty 10 stairs (about 1 flight of stairs) n. Standing for 1 A little bit of difficulty hour o. Sitting for 1 A little bit of difficulty hour p. Running on even A little bit of difficulty ground q. Running on uneven Moderate difficulty ground r. Making sharp Moderate difficulty turns while running fast s. Hopping Moderate difficulty t. Rolling over in A little bit of difficulty bed LEFI Score Lower Extremity 58 Functional Index Score Rehab Re-assessment Subjective Subjective Pt reports that she is 75% improved with her R knee and 40-50% improved with her neck. Pt reports that her knee does not hurt at all. Pt reports that she did have one fall approximately 2-3 weeks ago on a steep step but reports that she did not hurt herself. Pt reports that she feels much stronger with her legs. Pt reports that her balance is still not perfect. Pt reports that she is able to stand for 25-30 minutes at a time to cook or clean without increasing her knee pain. Pt reports that her neck still hurts some. Reports pain at a 2-3/10 throughout today's RA. Pt reports that her neck continues to feel stiff overall. Reports that PT is helping tremendously and would like to continue for at least 1 more month. Objective Objective Notes LEFS: 58 (38 on IE) NDI: 10 (10 on IE) CROM: - Flexion 75% - Extension 50% - Rotation 50% B - Lateral Flexion 35% B TTP: 2/[address] on R side MMT: R LE - Hip flexion 4/5 - Hip ABD 4/5 - Hip ADD 4/5 - Knee Extension 4/5 - Knee Flexion 4+/5 TS on even surface: 30s B (8 and 6s on uneven surface) Gait: symmetrical gait mechanics, no apparent LOB with walking stick. Assessment Progress Assessment Progressing as Expected Assessment Notes Pt presents this date for reassessment. She has attended 5 treatment sessions since her initial evaluation. Sessions have consisted of LE strengthening , balance training, gait training, cervical mobility training and pain modulation exercises. Pt has responded well to PT, particularly with her LE strength , balance and gait mechanics. Pt has improved her ambulatory ability, however, still presents below baseline in these areas. Pt has not progressed as well for her cervical spine pain. Pt continues to demonstrate deficits, particularly into lateral flexion . Pt would continue to benefit from skilled PT to address her remaining deficits. PT Patient Goals PT Short Term 1. 2/4 to TTP assessment above MET Patient Goals 2. Improve CROM to 40% WNL NOT MET 3. R knee/ hip 3+/5 MMT MET 4. Stand for 20 minutes without increasing symptoms MET 5. TS on even surface for 30s MET 6. <7 on NDI NOT MET 7. > 48 on LEFS MET 8. 5/10 pain with above assessment MET 9. IND w HEP MET PT Residential Patient 1. 0-1/4 to TTP assessment above NOT MET Goals 2. Improve CROM to 60% WNL NOT MET 3. 4/5 MMT to R hip/knee MET 4. Symmetrical gait pattern with AAD. MET 5. 40 minutes standing without increasing symptoms NOT MET 6. cook/clean without increasing symptoms MET 7. TS on Uneven surface for 30s NOT MET 8. NDI >7 NOT MET 9. LEFS > 57 MET 10. 2-3/10 pain with above assessment MET 11. Improve self care NOT MET 12. IND with advanced HEP. NOT MET Plan Plan Pt would continue to benefit from skilled PT to address her remaining impairments, as outlined above. The following frequency and activities would best promote this patient's return to her PLOF. Frequency of Therapy 2/week Duration of Therapy 4 weeks Therapeutic Exercise Yes Including Home Exercise Program Manual Therapy Yes Techniques Neuromuscular Re- Yes education Therapeutic Yes Activities to Return to Previous Functional/Work Level Gait Training Yes ADL/Self Care Yes Education Thermal Modalities Yes Electrical Yes Stimulation Iontophoresis Yes Massage Yes Manual Lymphatic Yes Drainage Eval/Re-Eval Yes Time and Billing Re-Eval Time 10 Re-Eval Billing 0 Units Charge for PT No reassessment? PHYSICIAN CERTIFICATION: I certify the specified therapy services for Yamilet James are required, authorized, and reviewed every 30 days.
== END 2025-07-11 23:59 | disposition home or self-care (01) ==
LOC: PT 09:00
PROVIDERS: Visit Provider Family Medicine
DX: M25.561 Pain in right knee (principal); M54.2 Cervicalgia
CPT/HCPCS: 97110; 97530

== ENCOUNTER 2025-07-15 14:23 | Outpatient (CLI) | payer MEDICARE, MEDICAID, SELFPAY ==
--- OUTSIDE RECORDS SUMMARY | 2025-07-15 14:25 | XMS_ITS | Clinical Summary ---
Author Organization [facility] Address [address] [place] [address] Care Team Providers Care Assembly Machine Tender Name Role Phone Parish Burks MD Primary Care Provider [phone] Encounters Date Type Department Care Team Description 05/19/2025 Travel from Last 3 Months Social History Tobacco Use Types Packs/Day Years Used Date Smoking Tobacco: Never Assessed Comments Unknown Sex and Gender Information Value Date Recorded Sex Assigned at Not on file Legal Sex Female 5:55 PM EDT Gender Identity Not on file Sexual Orientation Not on file Plan of Treatment Upcoming Encounters Date Type Department Care Team (Late st Contact Info) Description 05/19/2026 11:30 AM EDT Ovarian Cancer Screening [facility] [address] [place] [address] Health Maintenance Due Date Last Done Comments [facility]-Depression Screening 1958 [facility]-Hepatitis C Screening 1958 [facility]-Medicare Annual Wellness (AWV) 1958 [facility]-/Child/Adol SDOH Screenings 1958 [facility]- SDOH Screenings 1976 [facility]-Adult SDOH Screenings 1976 [facility]-DTaP,Tdap,and Td Vaccines (1 - Tdap) 1977 CT Colonography 2003 Colonoscopy 2003 FIT-DNA 2003 FIT 2003 FOBT 2003 Sigmoidoscopy 2003 [facility]-Colorectal Cancer Screening 2003 [facility]-Pneumococcal Vaccine: 50+ Years (1 of 1 - PCV) 2008 [facility]-Zoster Vaccines (1 of 2) 2008 [facility]-Bone Density Scan 06/26/2016 06/26/2014 [id number] Vaccine ( season) 2024 03/19/2021 [facility]-Influenza Vaccine (#1) 2025 [facility]-Breast Cancer Screening 10/02/202609/14, 10/02/2024, 09/08/2023, Additional history exists [facility]-RSV Vaccine: 60+ Years or (1 - 1-dose 75+ series) 2033 HPV Vaccines Aged Out No longer eligi ble based on patient's age to complete this topic [facility]-HIB Vaccines Aged Out No longer e ligible based on patient's age to complete this topic [facility]-Hepatitis A Vaccines Aged Out No longer eligible based on patient's age to complete this topic [facility]-IPV Vaccines Aged Out No longer e ligible based on patient's age to complete this topic [facility]-Rotavirus Vaccines Aged Out No lo nger eligible based on patient's age to complete this topic Insurance MEDICAID-[place] MEDICARE Care Teams Assembly Machine Tender Relationship Specialty Start Date End Date Parish Burks MD [address] [place] [id number] PCP - General 03/26/21
--- OUTSIDE RECORDS SUMMARY | 2025-07-15 14:25 | XMS_ITS | Encounter Summary ---
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 - [facility] Social History Tobacco Use Types Packs/Day Years Used Date Smoking Tobacco: Never Assessed Comments Unknown Sex and Gender Information Value Date Recorded Sex Assigned at Not on file Legal Sex Female 12:50 PM EDT Gender Identity Not on file Sexual Orientation Not on file documented as of this encounter Plan of Treatment Not on file documented as of this encounter Visit Diagnoses Not on filedocumented in this encounter Care Teams Machine Bander And Cellophaner Relationship Specialty Start Date End Date Parish Burks MD [address] [facility] [address] [place] [id number] PCP - General Family Medicine 06/09/16 documented as of this encounter
--- OUTSIDE RECORDS SUMMARY | 2025-07-15 14:25 | XMS_ITS | Clinical Summary ---
Author Organization [facility] Address [address] [place] [address] Care Team Providers Care Charge Auditor Name Role Phone Parish Burks MD Primary Care Provider Allergies Active Allergy Reactions Criticality Noted Date Comments Fluticasone-Salmeterol Other (See Comments) Risedronate Sodium GI Intolerance 06/09/2016 Amoxicillin-Pot Clavulanate Diarrhea 06/09/20 16 Azithromycin GI Intolerance 06/09/2016 Beclomethasone GI Intolerance 06/09/2016 Clarithromycin GI Intolerance 06/09/2016 Cefaclor 06/09/2016 Celecoxib Diarrhea 06/09/2016 Ciprofloxacin Hcl GI Intolerance 06/09/2016 Cyclobenzaprine Confusion 06/09/2016 Oxaprozin GI Intolerance 06/09/2016 Doxycycline GI Intolerance 06/28/2018 Oxycodone-Acetaminophen Nausea Only 06/09/2016 Phenylephrine-Guaifenesin Other (See Comments) 06/09/2016 Erythromycin Ethylsuccinate Other (See Comments) 06/09/2016 Estradiol Other (See Comments) 06/09/2016 Piroxicam Arrhythmia 06/09/2016 Alendronate Other (See Comments) 06/09/2016 Gabapentin Dizziness 06/09/2016 Indomethacin GI Intolerance 06/09/2016 Diphenoxylate Other (See Comments) 06/09/2016 Pregabalin Confusion 06/09/2016 Methylprednisolone GI Intolerance 06/28/2018 Pseudoephedrine Arrhythmia 06/09/2016 Salsalate GI Intolerance 06/09/2016 Montelukast Sodium Other (See Comments) 018 headaches Tiotropium [place] Monohydrate Other (See Comments) 06/09/2016 Sulindac GI Intolerance 06/09/2016 Topiramate Dizziness 06/09/2016 Cetirizine Other (See Comments) 06/09/2016 Medications FLOVENT HFA 220 MCG/ACT inhaler Inhale 2 puffs 2 (two) times a day. 06/03/2016 Active SUMAtriptan (IMITREX) 100 MG tablet Take 100 mg by mouth as needed for migraine. Active hydrOXYzine (VISTARIL) 25 MG capsule Take 25 mg by mouth every night. Active Calcium-Magnesi um-Vitamin D ER (CALCIUM 1200+D3) 600-40-500 MG-MG-UNIT tablet sustained-relea se 24 hour Take 1 tablet by mouth daily. Active cyclobenzaprine (FLEXERIL) 10 MG tablet Take 0.5 tablets by mouth Every Night. Active omeprazole (priLOSEC) 40 MG capsule Take 1 capsule by mouth Every Other Day. Active albuterol (VENTOLIN HFA) 108 (90 Base) MCG/ACT inhaler Inhale 2 puffs Every 4 (Four) Hours. Active cholecalciferol (VITAMIN D3) 25 MCG (1000 UT) tablet Take 2,000 Units by mouth Daily. Active Active Problems Problem Noted Date Diagnosed Date Wrist fracture, right Vitamin D deficiency Vaginal atrophy Scoliosis Osteoporosis Osteoarthritis Migraine Menopause Asthma Fibrocystic breast changes, bilateral Resolved Problems Problem Noted Date Diagnosed Date Resolved Date Fibrocystic breast changes, bilateral 06/09/2016 Family History Medical History Relation Name Comments Hypertension Brother Hypertension Father Prostate cancer Father Ovarian cancer Maternal Grandmother Seizures Mother Alzheimer's disease Paternal Grandmother Breast cancer Neg Hx Endometrial cancer Neg Hx Relation Name Status Comments Brother Father Maternal Grandmother (Age 62) Mother Paternal Grandmother Social History Tobacco Use Types Packs/Day Years Used Date Smoking Tobacco: Never Smokeless Tobacco: Never Alcohol Use Standard Drinks/Week Comments No 0 (1 standard drink = 0.6 oz pur e alcohol) Comments No Sex and Gender Information Value Date Recorded Sex Assigned at Not on file Legal Sex Female 12:50 PM EDT Gender Identity Not on file Sexual Orientation Not on file Last Filed Vital Signs Vital Sign Reading Time Taken Comments Blood Pressure 108/72 07/29/2021 11:12 AM EDT Pulse - - Temperature - - Respiratory Rate - - Oxygen Saturation - - Inhaled Oxygen Concentration - - Weight 62.6 kg (138 lb) 07/29/2021 11:12 AM EDT Height 154.9 cm (5' 1 ) 07/29/2021 11:12 AM EDT Body Mass Index 26.07 07/29/2021 11:12 AM EDT Plan of Treatment Health Maintenance Due Date Last Done Comments Pneumococcal Vaccine 50+ (1 of 2 - PCV) 1977 TDAP/TD VACCINES (1 - Tdap) 1977 COLOGUARD 2003 COLON CANCER SCREENING 5 YEA R SIGMOID[address]COPY [address] COLONOGRAPHY 2003 FECAL OCCULT BLOOD TEST 2003 FIT Testing (1 year) 2003 ZOSTER VACCINE (1 of 2) 2008 DXA SCAN 06/26/2016 06/26/2014 ANNUAL WELLNESS VISIT 06/22/2017 HEPATITIS C SCREENING 06/22/2017 COVID-19 Vaccine (2 - 2023-2 5 season) 2024 03/19/2021 COLONOSCOPY 02/05/2025 02/05/2015 COLORECTAL CANCER SCREENING 02/05/2025 INFLUENZA VACCINE 08/13/2025 MAMMOGRAM 10/02/2026 10/02/2024, 08/14, 08/30/2022, Additional history exists Procedures Procedure Name Priority Date/Time Associated Diagnosis Comments MAMMO SCREENING DIGITAL TOMOSYNTHESIS BILATERAL W CAD Routine 10/02/2024 10:29 AM EST Visit for screening mammogram DEXA BONE DENSITY AXIAL Routine 06/26/2014 3:26 PM EDT from Last 3 Months or Most Recently Relevant to Health Maintenance Results * Mammo Screening Digital Tomosynthesis Bilateral With CAD (10/02/2024 10:29 AM EST) Anatomical Region Laterality Modality Breast N/A Mammography 10/05/2024 12:1 7 PM EST Impressions 10/05/2024 12:18 PM EST No findings suspicious for malignancy. ACR BI-RADS CATEGORY: 1, NEGATIVE RECOMMENDATION: Yearly mammogram, yearly clinical breast exam, and encourage self breast awareness. CAD was used. The standard false negative rate of mammography is between 10% and 25%. Complex patterns or increased breast density will markedly elevate the false negative rate of mammography. A letter, in lay terminology, with the results of this exam will be mailed to the patient. At our facility, a triangular marker is positioned over a palpable area of concern indicated by the patient. A rosebud marker is placed over a visible skin lesion. A linear marker indicates a scar. If there is a palpable area of concern, biopsy should be considered regardless of imaging findings. This report was finalized on 10/05/2024 12:[address] Mary Ryan MD. Narrative 10/05/2024 12:18 PM EST DIGITAL SCREENING MAMMOGRAM WITH TOMOSYNTHESIS HISTORY: Routine screening. IMAGE COMPARISON: 09/08/2023, 08/30/2022, 07/29/2021. TECHNIQUE: Low dose full field digital breast tomosynthesis imaging was performed with 2D and 3D acquisitions consisting of bilateral CC and MLO views. FINDINGS: The breasts are heterogeneously dense, which may obscure small masses. The fibroglandular pattern appears stable. There is no mass, worrisome microcalcifications, or architectural distortion to suggest development of malignancy. Parish Burks MD IMG MAMMOGRAPHY ORDERA BLES Final Result * DEXA BONE DENSITY AXIAL (06/26/2014 3:26 PM EDT) Anatomical Region Laterality Modality Wrist, Hip, L-spine N/A Radiographic Imaging 06/26/2014 3:26 PM EDT Narrative 07/03/2014 11:07 PM EDT DUAL-ENERGY X-RAY ABSORPTIOMETRY (DXA) HISTORY: 33-year-old postmenopausal female who uses steroid inhalers for her asthma. She discontinued Fosamax five years ago and Actonel one year ago. COMPARISON: 06/11/2012. PROCEDURE: A DXA scan was performed using a Hologic densitometer. The lumbar spine through L4 was evaluated as well as both total hips and the left forearm. The T-score compares the patient's bone mineral density with the peak bone mass of young normal patients. According to criteria established by the World Health Organization, patients with T-scores between 1.0 and 2.5 standard deviations BELOW the mean are osteopenic (low bone mass). Patients with T-scores EQUAL TO OR GREATER than 2.5 standard deviations below the mean are osteoporotic. The Z-score compares the patient bone mineral density with age and sex matched peers. According to the International Society for Clinical Densitometry's 2007 consensus conference: In women prior to menopause and men less than age 50, Z-scores, not T-scores, are preferred. A Z-score of -2.0 or lower is defined as below the expected range for age and a Z-score above -2.0 is within the expected range for age. The WHO diagnostic criteria may be applied in women in menopausal transition. Osteoporosis cannot be diagnosed in men under age 50 on the basis of BMD alone. RESULTS: Lumber Spine: The BMD measured in the L1 through L4 region is 0.884 g/cm2. The average T-score is -2.5. The Z-score is -1.8. Left Total Hip: The BMD measured at the left total proximal femur is 0.761 g/cm2. The T-score is -2.0 The Z-score is -1.4. Left Femoral Neck: The BMD measured at the left femoral neck is 0.807 g/cm2. The T-score is -1.7. The Z-score is- 0.8. Right Total Hip: The BMD measured at the right total proximal femur is 0.723 g/cm2. The T-score is -2.3 The Z-score is -1.7. Right Femoral Neck: The BMD measured at the right femoral neck is 0.760 g/cm2. The T-score is -2.0. The Z-score is -1.1 1/3 Radius: The BMD measured at the left one-third radius is 0.609 g/cm2. The T-score is -3.0. The Z-score is -2.5. IMPRESSION- According to standards provided by the World Health Organization, the patient is osteoporotic in the lumbar spine and osteoporotic in the left forearm. The patient is osteopenic in both hips. The ten-year fracture risk assessment not reported as the patient has received treatment. She has had a major osteoporotic fracture. Less than 3% risk in the [place] for hip fracture and less than 20% risk of any systemic osteoporotic fracture is considered less than the threshold for where pharmacological therapy is recommended by the National Osteoporosis Foundation. All the treatment decisions require clinical judgment and consideration of individual patient factors, including patient preferences, co-morbidities, previous drug use, risk factors not captured in the FRAX model (frailty, falls, vitamin D deficiency, increased bone turnover, interval significant decline in bone density) and possible under or over estimation of fracture risk by FRAX. Approaches to reduce osteoporosis related fracture risk include optimizing calcium and vitamin D status, appropriate weight bearing exercises and fall-prevention measurements. The National Osteoporosis Foundation recommends (http://www.nof.org/hcp/practice/marzhwrf-omk-hbyxndvr-guidelines/clinic ians-guide) that FDA-approved medical therapies be considered in women and men aged equal or greater than 50 years with : a) hip or vertebral (clinical or morphometric) fracture; b) T-score of -2.5 or less at the spine or hip; c) Ten-year fracture probability by FRAX of greater than 3% for hip fracture of greater than 20% for major osteoporotic fracture. Secondary causes of bone loss should be evaluated if clinically indicated since the etiology of low BMD cannot be determined by BMD measurement alone. FOLLOWUP: Consider repeating the study in 2-3 years to reassess the patient's status or sooner if there is some new clinical indication. INTERVAL CHANGE: Compared to the prior study the patient has shown a slight gain in bone density in the lumbar spine at a rate of 0.1% compared to baseline with a slight gain in bone density in the left hip at a rate of 1.3% compared to baseline with a loss in bone density in the right hip at a rate of -5.6% compared to baseline. At this facility, the least significant change in the BMD of the lumbar spine with 95% confidence is 0.0 gm/cm2 and and 0.014 g/cm2 at the hip. Reading RadiologistDenise LO Releasing RadiologistDenise LO Released Date Time- 07/04/14 0829 Motorcycle Deliverer- L.S. Srinivas Najera MD [facility] DXA ORDERABLES Final Result from Last 3 Months or Most Recently Relevant to Health Maintenance Insurance MEDICARE A [place] B [place] Care Teams Charge Auditor Relationship Specialty Start Date End Date Parish Burks MD [address] [facility] [address] [place] [id number] PCP - General Family Medicine 06/09/16
--- OUTSIDE RECORDS SUMMARY | 2025-07-15 14:25 | XMS_ITS | Encounter Summary ---
Author Organization Healthcare Address [address] [place] [address] Care Team Providers Care Roll Tender Name Role Phone aPrish Burks MD Primary Care Provider [phone] Encounter Details Date Type Department Care Team (Latest Contact Info) Description 05/19/2025 Travel Social History Tobacco Use Types Packs/Day Years Used Date Smoking Tobacco: Never Assessed Comments Unknown Sex and Gender Information Value Date Recorded Sex Assigned at Not on file Legal Sex Female 5:55 PM EDT Gender Identity Not on file Sexual Orientation Not on file documented as of this encounter Plan of Treatment Upcoming Encounters Date Type Department Care Team (Late st Contact Info) Description 05/19/2026 11:30 AM EDT Ovarian Cancer Screening [facility] [address] [facility] [place] [address] documented as of this encounter Visit Diagnoses Not on filedocumented in this encounter Care Teams Roll Tender Relationship Specialty Start Date End Date Parish Burks MD [address] [place] [address] PCP - General 03/26/21 documented as of this encounter
--- NOTE | 2025-07-15 14:30 | CT_ITS ---
FINAL REPORT TECHNIQUE: Axial images were obtained through the chest without contrast. Multiplanar reconstructions in the sagittal and coronal planes were subsequently performed. This study was performed with techniques to keep radiation doses as low as reasonably achievable (ALARA). Individualized dose reduction techniques using automated exposure control or adjustment of mA and/or kV according to the patient's size were employed. CLINICAL HISTORY: chronic cough- lasting 2 years-non smoker COMPARISON: None FINDINGS: There is 40 degrees of thoracolumbar scoliosis convex to the right. Mild anterior osteophytes are noted in the mid and lower thoracic spine. The lungs are hyperinflated. Scarring is present in the right lung base. The heart size is normal. There is no pericardial or pleural effusion. Limited images of the upper abdomen demonstrate a prior cholecystectomy. No suspicious infiltrate or nodule identified. IMPRESSION: 40 degrees of thoracolumbar scoliosis is present. No suspicious infiltrate or nodule is identified. Reviewed, Interpreted and Dictated by Priyank Han MD Transcribed by Opal Morse Authenticated and [facility]
== END 2025-07-15 23:59 | disposition home or self-care (01) ==
PROVIDERS: PCP Family Medicine; Visit Provider Nurse Practitioner
DX: M41.85 Other forms of scoliosis, thoracolumbar region (principal); R05.3 Chronic cough
CPT/HCPCS: 71250

== ENCOUNTER 2025-08-12 15:00 | Outpatient (RCR) | payer MEDICARE, MEDICAID, SELFPAY ==
--- NOTE | 2025-07-23 10:11 | HMH.RHREAS ---
Rehab Reassessment Rehab OP Re-assessment Start: 07/21/25 09:05 Freq: Status: Active Protocol: Document 07/23/25 09:50 [email or web address] (Rec: 07/23/25 10:10 KEELEY [id number]) E-signed By Baljit Saunders PT Neck Disability Index Neck Disability Index Section 1: Pain The pain is very mild at moment Intensity Section 2: Personal I can look after myself normally without causing extra Care (washing, pain dressing, etc.) Section 3: Lifting I can lift heavy weights but it gives extra pain Section 4: Reading I can read as much as I want to with slight pain in my neck Section 5: Headaches I have slight headaches, which come infrequently Section 6: I can concentrate fully when I want to with no Concentration difficulty Section 7: Work I can only do my usual work, but no more Section 8: Driving I can drive my car without any neck pain Section 9: Sleeping My sleep is slightly disturbed (less than 1 hr sleepless) Section 10: I am able to engage in all my recreation activities Recreation with some pain in NDI Score 7 Lower Extremity Functional Index Activities Today, do you or would you have any difficulty at all with: a.Any of your usual A little bit of difficulty work, housework or school activities b. Your usual No difficulty hobbies, recreational or sporting activities c. Getting into or No difficulty out of the bath d. Walking between A little bit of difficulty rooms e. Putting on your A little bit of difficulty shoes or socks f. Squatting Quite a bit of difficulty g. Lifting an object Quite a bit of difficulty , like a bag of groceries from the floor h. Performing light No difficulty activities around your home i. Performing heavy Quite a bit of difficulty activities around your home j. Getting into or A little bit of difficulty out of a car k. Walking 2 blocks Extreme difficulty or unable to perform activity l. Walking a mile Extreme difficulty or unable to perform activity m. Going up or down Quite a bit of difficulty 10 stairs (about 1 flight of stairs) n. Standing for 1 A little bit of difficulty hour o. Sitting for 1 A little bit of difficulty hour p. Running on even Extreme difficulty or unable to perform activity ground q. Running on uneven Extreme difficulty or unable to perform activity ground r. Making sharp Extreme difficulty or unable to perform activity turns while running fast s. Hopping Extreme difficulty or unable to perform activity t. Rolling over in A little bit of difficulty bed LEFI Score Lower Extremity 37 Functional Index Score Rehab Re-assessment Subjective Subjective Pt reports that she is 50% improved this date. Pt reports that she was unable to come to PT consistently over the past month, due to her father's . Pt reports that her knees are doing much better than they were prior to beginning PT. Pt reports improved walking and improved balance. Pt reports her neck is mostly unchanged at this point. Pt would like to continue PT for a couple more weeks. Objective Objective Notes LEFS: 37 (38 on IE) (58 at last RA) NDI: 7 (10 at last RA) (10 on IE) CROM: - Flexion 75% - Extension 50% - Rotation 50% B - Lateral Flexion 35% B TTP: 2/[address] J[address] on R side MMT: R LE - Hip flexion 4/5 - Hip ABD 4/5 - Hip ADD 4/5 - Knee Extension 4/5 - Knee Flexion 4+/5 TS on even surface: 30s B (15 and 10s on uneven surface ) Gait: symmetrical gait mechanics, no apparent LOB with walking stick. Assessment Progress Assessment Slower Than Expected Assessment Notes Pt has undergone two months of skilled PT at this time. Pt made significant progress in the first month, however, her progress has mostly stalled since then. Pt was unable to consistently attend PT over the last month due to a in her family. Pt could continue to benefit from skilled PT at this time. PT Patient Goals PT Short Term 1. 2/4 to TTP assessment above MET Patient Goals 2. Improve CROM to 40% WNL NOT MET 3. R knee/ hip 3+/5 MMT MET 4. Stand for 20 minutes without increasing symptoms MET 5. TS on even surface for 30s MET 6. <7 on ND MET 7. > 48 on LEFS NOT MET 8. 5/10 pain with above assessment MET 9. IND w HEP MET PT Unit Nurse Patient 1. 0-11/16 to TTP assessment above NOT MET Goals 2. Improve CROM to 60% WNL NOT MET 3. 4/5 MMT to R hip/knee MET 4. Symmetrical gait pattern with AAD. MET 5. 40 minutes standing without increasing symptoms NOT MET 6. cook/clean without increasing symptoms MET 7. TS on Uneven surface for 30s NOT MET 8. NDI >7 NOT MET 9. LEFS > 57 MET 10. 2-3/10 pain with above assessment MET 11. Improve self care NOT MET 12. IND with advanced HEP. NOT MET Plan Plan Continue as per initial POC utilizing the following methods and activities. Frequency of Therapy 2/week Duration of Therapy 4 weeks Therapeutic Exercise Yes Including Home Exercise Program Manual Therapy Yes Techniques Neuromuscular Re- Yes education Therapeutic Yes Activities to Return to Previous Functional/Work Level Gait Training Yes ADL/Self Care Yes Education Mechanical Traction Yes Thermal Modalities Yes Electrical Yes Stimulation Eval/Re-Eval Yes Time and Billing Re-Eval Time 10 Re-Eval Billing 0 Units Charge for PT No reassessment? PHYSICIAN CERTIFICATION: I certify the specified therapy services for Yamilet James are required, authorized, and reviewed every 30 days.
== END 2025-08-12 23:59 | disposition home or self-care (01) ==
LOC: PT 15:00
PROVIDERS: PCP Family Medicine; Visit Provider Family Medicine
DX: M54.2 Cervicalgia (principal)
CPT/HCPCS: 97110

== ENCOUNTER 2025-08-28 13:00 | Outpatient (RCR) | payer MEDICARE, MEDICAID, SELFPAY ==
--- NOTE | 2025-08-21 08:58 | [facility].RHREAS ---
Rehab Reassessment Rehab OP Re-assessment Start: 08/14/25 08:16 Freq: Status: Active Protocol: Document 08/21/25 08:28 KEELEY (Rec: 08/21/25 08:58 KEELEY [id number]) E-signed By Baljit Saunders PT Neck Disability Index Neck Disability Index Section 1: Pain I have no pain at the moment Intensity Section 2: Personal I can look after myself normally without causing extra Care (washing, pain dressing, etc.) Section 3: Lifting I can lift heavy weights without extra pain Section 4: Reading I can read as much as I want to with no pain in my neck Section 5: Headaches I have slight headaches, which come infrequently Section 6: I can concentrate fully when I want to with no Concentration difficulty Section 7: Work I can do as much work as I want to Section 8: Driving I can drive my car without any neck pain Section 9: Sleeping My sleep is slightly disturbed (less than 1 hr sleepless) Section 10: I am able to engage in all my recreation activities Recreation with no neck pain NDI Score 2 Lower Extremity Functional Index Activities Today, do you or would you have any difficulty at all with: a.Any of your usual No difficulty work, housework or school activities b. Your usual No difficulty hobbies, recreational or sporting activities c. Getting into or No difficulty out of the bath d. Walking between No difficulty rooms e. Putting on your No difficulty shoes or socks f. Squatting Extreme difficulty or unable to perform activity g. Lifting an object No difficulty , like a bag of groceries from the floor h. Performing light No difficulty activities around your home i. Performing heavy No difficulty activities around your home j. Getting into or No difficulty out of a car k. Walking 2 blocks Extreme difficulty or unable to perform activity l. Walking a mile Quite a bit of difficulty m. Going up or down A little bit of difficulty 10 stairs (about 1 flight of stairs) n. Standing for 1 A little bit of difficulty hour o. Sitting for 1 A little bit of difficulty hour p. Running on even Extreme difficulty or unable to perform activity ground q. Running on uneven Extreme difficulty or unable to perform activity ground r. Making sharp Extreme difficulty or unable to perform activity turns while running fast s. Hopping Quite a bit of difficulty t. Rolling over in No difficulty bed LEFI Score Lower Extremity 51 Functional Index Score Rehab Re-assessment Subjective Subjective Pt reports that she is 80-90% improved since beginning PT. She reports that her legs feel much stronger. She reports that her neck has improved some and she continues to do her stretches and exercises at home. Pt reports that she believes that she is prepared to be discharged from PT after her two appointments next week . Objective Objective Notes LEFS: 51 (38 on IE) (58 at last RA) NDI:2 (7 at recent RA) (10 on IE) CROM: - Flexion 75% - Extension 50% - Rotation 50% B - Lateral Flexion 35% B TTP: 11/[address] [place] [address] [place] on R side MMT: R LE - Hip flexion 4+/5 - Hip ABD 4+/5 - Hip ADD 4/5 - Knee Extension 4/5 - Knee Flexion 4+/5 TS on even surface: 30s B (30s on uneven surface) Gait: symmetrical gait mechanics, no apparent LOB with walking stick. Assessment Progress Assessment Progressing as Expected Assessment Notes Pt has met or nearly all stated therapy goals. She has progressed well since beginning PT 3 months ago. Pt is prepared for discharge this date. She has two more scheduled appointments, which will be used for discharge to an advanced HEP. PT Patient Goals PT Short Term 1. 2/4 to TTP assessment above MET Patient Goals 2. Improve CROM to 40% WNL NOT MET 3. R knee/ hip 3+/5 MMT MET 4. Stand for 20 minutes without increasing symptoms MET 5. TS on even surface for 30s MET 6. <7 on ND MET 7. > 48 on LEFS MET 8. 5/10 pain with above assessment MET 9. IND w HEP MET PT Usp Patient 1. 0-4 to TTP assessment above MET Goals 2. Improve CROM to 60% WNL NOT MET 3. 4/5 MMT to R hip/knee MET 4. Symmetrical gait pattern with AAD. MET 5. 40 minutes standing without increasing symptoms MET 6. cook/clean without increasing symptoms MET 7. TS on Uneven surface for 30s MET 8. NDI >7 MET 9. LEFS > 57 MET 10. 2-3/10 pain with above assessment MET 11. Improve self care MET 12. IND with advanced HEP. NOT MET Plan Plan Continue as per initial POC, utilizing the following methods and activities. This progress note is being sent to the referring provider for an update on the POC. Frequency of Therapy 2/week Duration of Therapy 1 week Therapeutic Exercise Yes Including Home Exercise Program Manual Therapy Yes Techniques Neuromuscular Re- Yes education Therapeutic Yes Activities to Return to Previous Functional/Work Level Gait Training Yes Thermal Modalities Yes Electrical Yes Stimulation Time and Billing Re-Eval Time 10 Re-Eval Billing 0 Units Charge for PT No reassessment? PHYSICIAN CERTIFICATION: I certify the specified therapy services for Yamilet James are required, authorized, and reviewed every 30 days.
== END 2025-08-28 23:59 | disposition home or self-care (01) ==
LOC: PT 13:00
PROVIDERS: PCP Family Medicine; Visit Provider Family Medicine
DX: M54.2 Cervicalgia (principal)
CPT/HCPCS: 97110; 97112; 97530